=== PATIENT | male | born 1955 | race Caucasian/White ===

== ENCOUNTER 2017-09-24 10:11 | Emergency (ER) | payer SELFPAY ==
[~2017-09-24] VITALS: Ht 172.7 cm; Wt 86.2 kg
[~2017-09-24 10:11] MED LIST: AMOXIL 875 MG875 MG PO; ASPIR 8181 MG PO; AUGMENTIN 875 M1 TAB PO; BENADRYL ALLERG25 M2 PO; CLONAZEPAM0.5 MG PO; HCTZ/LISINOPRIL1 TA1 PO; HYDROCODONE/IBU1 TAB PO; MULTIVITAMIN1 TAB PO; PEPCID20 M1 PO; PREDNISONE20 M1 PO
--- NOTE | 2017-09-24 12:11 | ED HAND/WRIST INJURY COMPLAINT ---
History of Present Illness General Chief Complaint: Laceration Procedure Stated Complaint: LAC TO LEFT HAND Source: patient Exam Limitations: no limitations Vital Signs & Intake/Output Vital Signs & Intake/Output Vital Signs Date Time Temp Pulse Resp B/P B/P Pulse O2 O2 Flow FiO2 Mean Ox Delivery Rate 09/24 1400 Room Air 09/24 1400 98.4 76 16 136/80 98 Room Air ED Intake and Output 09/25 0000 09/24 1200 Intake Total Output Total Balance Patient 190 lb Weight Allergies Uncoded Allergies: POLLEN (DYSPNEA 05/23/14) Reconcile Medications Amoxicillin (Amoxil 875 MG Tablets) 875 MG TAB 1 TAB PO BID DENTAL INFECTION (Reported) AMOXICILLIN/POTASSIUM CLAV (Augmentin 875-125 Tablet) 875 MG/125 MG TAB 1 TAB PO BID DENTAL ABSCESS Aspirin (Ecotrin) 81 MG TABLET.DR 1 TAB PO DAILY HEART HEALTH (Reported) Cephalexin (Keflex) 500 MG CAPSULE 1 CAP PO BID skin Clonazepam 0.5 MG TABLET 0.5 TAB PO DAILY ANXIETY (Reported) Diphenhydramine HCl (Benadryl Allergy) 25 MG TABLET 1-2 TAB PO Q6P PRN allergic rx Famotidine (Pepcid) 20 MG TABLET 1 TAB PO BID allergic rx Hydrochlorothiazide/Lisinopr (Hctz/Lisinopril 12.5 MG-20 MG) 1 TAB TAB 1 TAB PO DAILY BP (Reported) Hydrocodone Bitartrate/Ibupr (Hydrocodone/Ibu 7.5 MG-200 MG) 1 TAB TAB 1-2 TAB PO Q4-6H PRN PAIN (Reported) Multivitamin (Multiple Vitamins) 1 EACH TABLET 1 TAB PO DAILY SUPPLEMENT ( Reported) Prednisone 20 MG TABLET 1 TAB PO BID allergic rx Triage Note: 62M TO ED WITH AVULSION SKIN TEAR TO DORSAL SIDE OF LEFT HAND FROM TABLE SAW. +CMS TO FINGERS, BLEEDING CONTROLLED. UNSURE OF LAST TETANUS. TRIAGE. DRESSING APPLIED Triage Nurses Notes Reviewed? yes Occurred: just prior to arrival Duration: day(s): Timing: recent history Injury Environment: work Severity: moderate Pain/Injury Location: Left: Wrist. Context: laceration Method of Injury: laceration HPI: 62-year-old male presents emergency department complaining of laceration to left wrist. Patient states that while at work he was using a saw and at piece of plastic material flew out and lacerated his left posterior wrist. Patient was able to control the bleeding prior to arrival here in the hospital. He has no difficulty with range of motion at this time. Patient denies numbness, tingling. Patient is unsure of when his last tetanus vaccine was updated. (Janessa Mcdaniel) Past History Travel History Traveled to [place] past 21 day No Medical History Any Pertinent Medical History? 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 No (Janessa Mcdaniel) Review of Systems Review of Systems Constitutional: Reports: no symptoms. EENTM: Reports: no symptoms. Respiratory: Reports: no symptoms. Cardiovascular: Reports: no symptoms. GI: Reports: no symptoms. Genitourinary: Reports: no symptoms. Musculoskeletal: Reports: see HPI. Skin: Reports: see HPI. Neurological/Psychological: Reports: no symptoms. Hematologic/Endocrine: Reports: no symptoms. Immunologic/Allergic: Reports: no symptoms. All Other Systems: Reviewed and Negative (Janessa Mcdaniel) Physical Exam Physical Exam General Appearance: well developed/nourished, no apparent distress, alert, awake Head: atraumatic, normal appearance Eyes: Bilateral: normal appearance. Ears, Nose, Throat: hearing grossly normal Neck: normal inspection, supple, full range of motion Cardiovascular/Respiratory: normal peripheral pulses, no respiratory distress Back: normal inspection, normal range of motion Forearm Left: normal range of motion, normal inspection, nontender Forearm Right: normal range of motion, normal inspection Wrist Left: dorsal wrist with 7cm laceration, foreign debris visualized, no tendon or artery visualised, ROM intact, tenderness to distal radius Wrist Right: normal range of motion, normal inspection Hand Left: normal inspection, normal range of motion Hand Right: normal inspection, normal range of motion Neurologic/Tendon: normal sensation, normal motor functions, normal tendon functions Skin: laceration as described above (Janessa Mcdaniel) Progress Differential Diagnosis: contusion, fracture, sprain, laceration, foreign body, tendon injury Plan of Care: Orders Procedure Date/time Status XRY-WRIST COMPLETE-LEFT 09/24 1257 Active There were 2 small foreign bodies removed from patient's wound prior to closure. Possibility of Very small particles still present in wound, patient informed that there may be remaining foreign body, he will be covered with antibiotics. Patient tolerated suturing well. XRAY shows small 3mm foreign body. The patient was given contact information for Dr. Dean in plastics, he was instructed to call the office today to make an appointment for tomorrow if possible. Patient had a laceration sustained from a piece of plastic, it is unknown if this 3 mm metallic foreign body is related to current laceration, foreign body appears to be approximately 2 inches distal to laceration on x-ray. Dr. Keith agrees with the plan of care. 09/25/17 - Dr. Ramirez spoke with Dr. Dean regarding this patient's follow up for foreign body, Dr. Dean will follow up with the patient in his office. I called the patient and left a voicemail on his answering machine. Diagnostic Imaging: Viewed by Me: Radiology Read. Discussed w/RAD: Radiology Read. Radiology Impression: PATIENT: CARRI GONZALEZ PRESENT AGE: 62 PATIENT ACCOUNT NO: [id number] : 55 LOCATION: [facility] ORDERING PHYSICIAN: Janessa RUSSELL SERVICE DATE: 09/24/17-1256 EXAM TYPE: RAD - XRY-WRIST COMPLETE-LEFT EXAMINATION: WRIST 4 VIEWS, LEFT CLINICAL INFORMATION: Pain following injury. Laceration. COMPARISON: None. TECHNIQUE: AP, lateral, oblique, scaphoid views of the left wrist are provided. FINDINGS: There are no fractures or dislocations. There is no displacement of the pronator fat pad. The proximal carpal row is intact. There is subcutaneous gas about the distal forearm indicative of penetrating injury. There are no adjacent radiopaque foreign bodies. Adjacent to the base of the fifth metacarpal, there is a 3 mm metallic density. IMPRESSION: No fractures or dislocations. Subcutaneous gas indicative of penetrating injury. No adjacent radiopaque foreign bodies. 3 mm metallic density identified volar to the base of the fifth metacarpal. DICTATED BY: Tal Thomas MD DATE/TIME DICTATED:09/24/171322 SALVAGE REPAIRER:JANET DATE/TIME TRANSCRIBED:06/06/18 / 1323 CONFIDENTIAL, DO NOT COPY WITHOUT APPROPRIATE AUTHORIZATION. <Electronically signed in Other Vendor System> SIGNED BY: Tal Thomas MD 09/24/17 5590 (Janessa Mcdaniel) Departure Departure Disposition: HOME OR SELF CARE Condition: Stable Clinical Impression Primary Impression: Laceration Referrals: Shahana Avina MD (PCP/Family) Additional Instructions: Monitor for signs of infection such as redness, increasing pain, swelling, cloudy drainage from wound. With any of the symptoms please return to the emergency Department. Otherwise return in 7-10 days for removal of stitches. Please note that there might be incidental findings in your evaluation that are unrelated to the current emergency department visit. Please notify your primary care doctor about this emergency department visit in order to obtain and review all of the testing performed so that these incidental findings can be monitored as needed. If you had an x-ray performed, please understand that some fractures may not be seen on the initial set of x-rays. If your symptoms persist you might need a repeat set of x-rays to check for such a fracture. If you had a laceration evaluated, please understand that foreign bodies such as glass or wood may not be visible to the naked eye or on plain x-rays. If the wound becomes red, swollen, increasingly more painful or if there is any drainage from the wound, please have it reevaluated by a physician for the possibility of a retained foreign body. If you're unable to follow up as outlined in the discharge instructions please return to the emergency department. Thank you for choosing the Emergency Department for your care. It was a pleasure to serve you today. Departure Forms: Customer Survey General Discharge Information Prescriptions: Current Visit Scripts Cephalexin (Keflex) 1 CAP PO BID #[id number] CAP (Janessa Mcdaniel) PA/STATION MECHANIC HELPER Co-Sign Statement Statement: ED Attending supervision documentation- [] I saw and evaluated the patient. I have also reviewed all the pertinent lab results and diagnostic results. I agree with the findings and the plan of care as documented in the PA's/STATION MECHANIC HELPER's documentation. [X] I have reviewed the ED Record and agree with the PA's/STATION MECHANIC HELPER's documentation. [] Additions or exceptions (if any) to the PAs/STATION MECHANIC HELPER's note and plan are summarized below: [] (Branden Ramirez DO) PA/STATION MECHANIC HELPER Co-Sign Statement Statement: ED Attending supervision documentation- [] I saw and evaluated the patient. I have also reviewed all the pertinent lab results and diagnostic results. I agree with the findings and the plan of care as documented in the PA's/STATION MECHANIC HELPER's documentation. [] I have reviewed the ED Record and agree with the PA's/STATION MECHANIC HELPER's documentation. [] Additions or exceptions (if any) to the PAs/STATION MECHANIC HELPER's note and plan are summarized below: [] (Shin Keith DO) Procedures Laceration/Wound Repair Laceration/Wound Repair: Wound Location: left dorsal hand Wound's Depth, Shape: linear Wound Length (cm): 7 Wound Explored: foreign body removed, irrigated extensively Irrigated w/ Saline (ccs): 1000 Betadine Prep? Yes Anesthesia: 1% lidocaine Volume Anesthetic (ccs): 4 Wound Repaired With: sutures Suture Size/Type: 5:0, nylon Number of Sutures: 10 Layer Closure? No Sterile Dressing Applied: Yes Date of Last Tetanus: 09/24/17 Tetanus Status: up to date Progress: Wound was irrigated extensively, 2 small foreign bodies were removed.Patient tolerated procedure well. (Stella RUSSELL,Janessa Machado)
[2017-09-24] MEDS ORDERED: KEFLEX500 M1 PO (13:10)
--- NOTE | 2017-09-24 13:28 | RADIOLOGY REPORT ---
EXAMINATION: WRIST 4 VIEWS, LEFT CLINICAL INFORMATION: Pain following injury. Laceration. COMPARISON: None. TECHNIQUE: AP, lateral, oblique, scaphoid views of the left wrist are provided. FINDINGS: There are no fractures or dislocations. There is no displacement of the pronator fat pad. The proximal carpal row is intact. There is subcutaneous gas about the distal forearm indicative of penetrating injury. There are no adjacent radiopaque foreign bodies. Adjacent to the base of the fifth metacarpal, there is a 3 mm metallic density. IMPRESSION: No fractures or dislocations. Subcutaneous gas indicative of penetrating injury. No adjacent radiopaque foreign bodies. 3 mm metallic density identified volar to the base of the fifth metacarpal.
[2017-09-24 14:00] VITALS: BP 136/80
== END 2017-09-24 14:01 ==
LOC: ERH 10:11
DX: S61.512A Laceration without foreign body of left wrist, initial encounter (principal); W27.0XXA Contact with workbench tool, initial encounter; Y93.89 Activity, other specified; Y92.89 Other specified places as the place of occurrence of the external cause
CPT/HCPCS: 73110-LT; 90471; J2001